=== PATIENT | male | born 1975 | race Hispanic/Latino ===

== ENCOUNTER 2021-04-01 11:52 | Emergency (ER) | payer OTHER | END 2021-04-01 13:06 | disposition home or self-care (01) | LOC: ERS 11:52 | DX: M70.12 Bursitis, left hand (principal); E03.9 Hypothyroidism, unspecified; E78.5 Hyperlipidemia, unspecified; E78.00 Pure hypercholesterolemia, unspecified; Z79.899 Other long term (current) drug therapy ==